=== PATIENT | male | born 2000 | race Caucasian/White ===

== ENCOUNTER 2020-03-13 13:22 | Emergency (ER) | payer OTHER, SELFPAY ==
[2020-03-13 13:32] VITALS: BP 147/77; PULSE 94; RESP 16; TEMP 37.2; O2SAT 98
--- NOTE | 2020-03-13 13:43 | ED.EAR ---
HPI - Ear Problem General Chief complaint: Ear Stated complaint: left ear pain Time Seen by Provider: 03/13/20 13:43 Source: patient Mode of arrival: ambulatory Limitations: no limitations History of Present Illness HPI Narrative: Toño Yoder is a 19 yo male with no PMH who comes to express care with L ear pain after swimming.-States left ear began to hurt this before going swimming denies any trauma to ear Related Data Allergies Allergy/AdvReac Type Severity Reaction Status Date / Time No Known Allergies Allergy Unverified 07/27/18 13:07 Review of Systems Review of Systems: Narrative: CONSTITUTIONAL: Denies fever, chills, sweats. EYES: Denies visual changes, redness, discharge. ENT: Denies rhinorrhea, congestion, sore throat, L otalgia. CARDIOVASCULAR: Denies chest pain, palpitations, edema. RESPIRATORY: Denies dyspnea, wheezing, cough GASTROINTESTINAL: Denies abdominal pain, nausea, vomiting, diarrhea. GENITOURINARY: Denies dysuria, hematuria, abnormal discharge SKIN: Denies rash or itching. NEUROLOGIC: Denies numbness, or focal weakness. PSYCHIATRIC: Denies anxiety or depression. [facility] Family History Family History Other No acute medical problems Social History Social History (Updated 03/13/20 @ 13:49 by Bridgette Escobedo CNP) Smoking status: Never smoker Alcohol intake: never Comments At time of signature, I agree with nursing past medical, surgical, social and family history. There is no relevant family history pertinent to the presenting complaint. Blood pressure elevated today due to pain bu referred for pcp follow-up Exam Narrative: Exam Narrative: GENERAL: This is a well-nourished, well-developed patient, in mild distress. HEAD: normocephalic, atraumatic. EYES: Sclera clear/white. Vision is grossly intact. EARS: External ears normal, auditory canals clear and L red, mild swelling- TMs normal without perforation. Hearing grossly intact. NOSE: External nose normal without nasal discharge, nares without redness, no rhinorrhea. THROAT: Mucous membranes moist, posterior pharynx pink NECK: Neck supple, non-tender CARDIOVASCULAR: Regular rate and rhythm without murmurs, gallops, or rubs. RESPIRATORY: Clear to auscultation. Breath sounds equal bilaterally. No wheezes, rales, or rhonchi. GASTROINTESTINAL: Abdomen soft, SKIN: warm, intact with no suspicious lesions or rash, good texture and turgor. NEURO: awake, alert, and oriented to person, place and time. There were no obvious focal neurologic abnormalities. Steady gait EXTREMITIES: Normal range of motion. BACK: Nontender without deformity Course Course Emergency Course: Started on eardrops; patient education on how to use eardrops; not to swim till ear is improved Vital Signs Vital signs: Vital Signs Temperature 99.0 F 03/13/20 13:32 Pulse Rate 94 03/13/20 13:32 Respiratory Rate 16 03/13/20 13:32 Blood Pressure 147/77 H 03/13/20 13:32 Pulse Oximetry 98 03/13/20 13:32 Temperature 99.0 F 03/13/20 13:32 Pulse Rate 94 03/13/20 13:32 Respiratory Rate 16 03/13/20 13:32 Blood Pressure 147/77 H 03/13/20 13:32 Pulse Oximetry 98 03/13/20 13:32 Medical Decision Making Differential Diagnosis Differential Diagnosis: Ear pain versus bacterial infection versus viral infection versus otitis media versus otitis externa Vital Signs Vital Signs: Vital Signs Temperature 99.0 F 03/13/20 13:32 Pulse Rate 94 03/13/20 13:32 Respiratory Rate 16 03/13/20 13:32 Blood Pressure 147/77 H 03/13/20 13:32 Pulse Oximetry 98 03/13/20 13:32 Temperature 99.0 F 03/13/20 13:32 Pulse Rate 94 03/13/20 13:32 Respiratory Rate 16 03/13/20 13:32 Blood Pressure 147/77 H 03/13/20 13:32 Pulse Oximetry 98 03/13/20 13:32 Discharge Plan Discharge Clinical Impression: Otitis externa Qualifiers: Otitis externa type: unspecified type Laterality: lef
== END 2020-03-13 14:05 | disposition home or self-care (01) ==
PROVIDERS: Emergency Provider Nurse Practitioner; PCP Physician Assistant
DX: H60.502 Unspecified acute noninfective otitis externa, left ear (principal)
CPT/HCPCS: 99213; G0463